=== PATIENT | female | born 1955 | race Caucasian/White ===

== ENCOUNTER 2016-11-03 14:40 | Emergency (ER) | payer BC ==
[2016-11-03] MEDS ORDERED: ASPIRIN 81 MG TABLET, CHEWABLE PO ONE (16:16)
--- NOTE | 2016-11-03 16:19 | ER Document Report ---
ED Medical Screen (RME) - General Chief Complaint: Chest Pain Stated Complaint: CHEST PAIN Mode of Arrival: Ambulatory Information source: Patient Notes: 61-year-old female presents with complaints of midsternal chest pain. Patient notes she has a history of hiatal hernia after eating steak she's been having a burning sensation in the epigastric region rating down her left arm. Patient denies any personal cardiac history Patient notes pain has been constant since last night and then improved today I have greeted and performed a rapid initial assessment of this patient. A comprehensive ED assessment and evaluation of the patient, analysis of test results and completion of the medical decision making process will be conducted by additional ED providers. PHYSICAL EXAMINATION: GENERAL: Well-appearing, well-nourished and in no acute distress. HEAD: Atraumatic, normocephalic. EYES: Pupils equal round extraocular movements intact, conjunctiva are normal. ENT: Nares patent NECK: Normal range of motion LUNGS: No respiratory distress Musculoskeletal: Normal range of motion NEUROLOGICAL: Normal speech, normal gait. PSYCH: Normal mood, normal affect. SKIN: Warm, Dry, normal turgor, no rashes or lesions noted. TRAVEL OUTSIDE OF THE [place] IN LAST 30 DAYS: No - Related Data Allergies/Adverse Reactions: doxycycline Adverse Reaction (Mild, Verified 06/23/16 08:04) UPSET STOMACH Past Medical History - Past Medical History Cardiac Medical History: Reports: Hx Hypertension - CONTROLLED WITH MEDICATIONS Denies: Hx Coronary Artery Disease, Hx Heart Attack Pulmonary Medical History: Denies: Hx Asthma, Hx Bronchitis, Hx COPD, Hx Pneumonia Neurological Medical History: Denies: Hx Cerebrovascular Accident, Hx Seizures Renal/ Medical History: Denies: Hx Peritoneal Dialysis Musculoskeltal Medical History: Reports Hx Arthritis Psychiatric Medical History: Reports: Hx Anxiety Past Surgical History: Reports: Hx Hysterectomy, Hx Orthopedic Surgery - bilateral hip replacement - Immunizations Hx Diphtheria, Pertussis, Tetanus Vaccination: Yes
[2016-11-03 16:58] LABS: ABSOLUTE BASOPHILS # (AUTO) 0.1 10^3/uL (0.0-0.2); ABSOLUTE EOSINOPHILS # (AUTO) 0.2 10^3/uL (0.0-0.6); ABSOLUTE LYMPHOCYTES (AUTO) 2.6 10^3/uL (0.5-4.7); ABSOLUTE MONOCYTES (AUTO) 0.7 10^3/uL (0.1-1.4); ABSOLUTE NEUT (AUTO) 6.3 10^3/uL (1.7-8.2); BASOPHILS % (AUTO) 0.6 % (0-2); EOSINOPHILS % (AUTO) 2.3 % (0-6); HEMATOCRIT 45.8 % (36.0-47.0); HEMOGLOBIN 16.2 g/dL (12.0-15.5); HGB HCT DIFFERENCE 2.8; LYMPHOCYTES % (AUTO) 25.8 % (13-45); MEAN CORPUSCULAR HEMOGLOBIN 30.9 pg (27.0-33.4); MEAN CORPUSCULAR HGB CONC 35.3 g/dL (32.0-36.0); MEAN CORPUSCULAR VOLUME 88 fl (80-97); MONOCYTES % (AUTO) 7.2 % (3-13); RED BLOOD COUNT 5.23 10^6/uL (3.72-5.28); RED CELL DISTRIBUTION WIDTH 12.9 % (11.5-14.0); SEGMENTED NEUTROPHILS % (AUTO) 64.1 % (42-78); WHITE BLOOD COUNT 9.9 10^3/uL (4.0-10.5)
[2016-11-03 17:10] LABS: ALANINE AMINOTRANSFERASE 32 U/L (9-52); ALBUMIN 4.8 g/dL (3.5-5.0); ALKALINE PHOSPHATASE 73 U/L (38-126); ANION GAP 13 (5-19); ASPARTATE AMINO TRANSFERASE 27 U/L (14-36); BILIRUBIN,DIRECT 0.3 mg/dL (0.0-0.4); BILIRUBIN,TOTAL 1.3 mg/dL (0.2-1.3); BLOOD UREA NITROGEN 27 mg/dL (7-20); CALCIUM 9.8 mg/dL (8.4-10.2); CARBON DIOXIDE 25 mmol/L (22-30); CHLORIDE 106 mmol/L (98-107); CREATINE KINASE 153 U/L (30-135); CREATININE RESULT 1.35 mg/dL (0.52-1.25); GLUCOSE 121 mg/dL (75-110); POTASSIUM 4.1 mmol/L (3.6-5.0); SODIUM 144.3 mmol/L (137-145)
--- NOTE | 2016-11-03 17:18 | ER Document Report ---
ED General - General Chief Complaint: Chest Pain Stated Complaint: CHEST PAIN Time seen by provider: 17:18 Mode of Arrival: Ambulatory Information source: Patient TRAVEL OUTSIDE OF THE [place] 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 She denies any significant pleuritic component or dyspnea or nausea. She states pain radiates somewhat through to the back. That she has been under increased stress recently, does have a history of hypertension and a hiatal hernia. She does report some belching and states she was only taking her Pepcid once a day instead of twice a day recently. Patient also reports she was raking in the yard and noted that she was having some pain to the same location later after raking, but not during the exertion itself. Patient is a nonsmoker. Patient had a cardiac catheterization which was negative in 2002. - Related Data Allergies/Adverse Reactions: doxycycline Adverse Reaction (Mild, Verified 06/23/16 08:04) UPSET STOMACH Past Medical History - General Information source: Patient - Social History Smoking Status: Never Smoker Chew tobacco use (# tins/day): No Frequency of alcohol use: None Drug Abuse: None Family History: CAD - Both of patient's parents were smokers, but father had a bypass surgery at age 65.of a stroke at age 68. Mother of congestive heart failure at age 77. Patient has suicidal ideation: No - Past Medical History Cardiac Medical History: Reports: Hx Hypertension - CONTROLLED WITH MEDICATIONS Denies: Hx Coronary Artery Disease, Hx Heart Attack Pulmonary Medical History: Denies: Hx Asthma, Hx Bronchitis, Hx COPD, Hx Pneumonia Neurological Medical History: Denies: Hx Cerebrovascular Accident, Hx Seizures Renal/ Medical History: Denies: Hx Peritoneal Dialysis Musculoskeltal Medical History: Reports Hx Arthritis Psychiatric Medical History: Reports: Hx Anxiety Past Surgical History: Reports: Hx Hysterectomy, Hx Orthopedic Surgery - bilateral hip replacement - Immunizations Hx Diphtheria, Pertussis, Tetanus Vaccination: Yes Review of Systems - Review of Systems Notes: REVIEW OF SYSTEMS: CONSTITUTIONAL : Denies fever, chills, or sweats. Denies recent illness. EENT: Denies eye, ear, throat, or mouth pain or symptoms. Denies nasal or sinus congestion or discharge. Denies throat, tongue, or mouth swelling or difficulty swallowing. CARDIOVASCULAR: Denies palpitations or racing or irregular heart beat. Denies ankle edema. Patient reports no recent long distance travel. RESPIRATORY: Denies cough, cold, or chest congestion. Denies shortness of breath, difficulty breathing, or wheezing. GASTROINTESTINAL: Denies abdominal pain or distention. Denies nausea, vomiting , or diarrhea. Denies blood in vomitus, stools, or per rectum. Denies black, tarry stools. Denies constipation. GENITOURINARY: Denies difficulty urinating, painful urination, burning, frequency, blood in urine, or discharge. FEMALE GENITOURINARY: Denies vaginal bleeding, heavy or abnormal periods, irregular periods. Denies vaginal discharge or odor. MUSCULOSKELETAL: Denies joint pain or swelling. Patient reports chronic arthralgias related to arthritis with intermittent episodes of back pain previously. SKIN: Denies rash, lesions or sores. HEMATOLOGIC : Denies easy bruising or bleeding. LYMPHATIC: Denies swollen, enlarged glands. NEUROLOGICAL: Denies confusion or altered mental status. Denies passing out or loss of consciousness. Denies dizziness or lightheadedness. Denies headache. Denies weakness or paralysis or loss of use of either side. Denies problems with gait or speech. Denies sensory loss, numbness, or tingling. Denies seizures. PSYCHIATRIC: Denies anxiety or stress. Denies depression, suicidal ideation, or homicidal ideation. ALL OTHER SYSTEMS REVIEWED AND NEGATIVE. Dictation was performed using [employer] voice recognition software Physical Exam - Vital signs Vitals: Pulse Resp BP Pulse Ox 65 18 168/94 H 97 11/03/16 15:21 11/03/16 15:21 11/03/16 15:21 11/03/16 15:21 - Notes Notes: PHYSICAL EXAMINATION: GENERAL: Well-appearing, well-nourished and in no acute distress. HEAD: Atraumatic, normocephalic. EYES: Pupils equal round and reactive to light, extraocular movements intact, conjunctiva are normal. ENT: Nares patent, oropharynx clear without exudates. Moist mucous membranes. NECK: Normal range of motion, supple without lymphadenopathy LUNGS: Breath sounds clear to auscultation bilaterally and equal. No wheezes rales or rhonchi. HEART: Regular rate and rhythm without murmurs ABDOMEN: Soft, nontender, nondistended abdomen. No guarding, no rebound. No masses appreciated. Negative Campbell's. Female : deferred Musculoskeletal: Normal range of motion, no pitting or edema. No cyanosis. Negative Homans. No palpable cord. Patient has pain to the left latissimus extending around to the back that is worse with movement of the arm and with flexion through the shoulder. No bony deformity or crepitance or erythema. NEUROLOGICAL: Cranial nerves grossly intact. Normal speech, normal gait. Normal sensory, motor exams PSYCH: Normal mood, normal affect. SKIN: Warm, Dry, normal turgor, no rashes or lesions noted. Course - Re-evaluation Re-evalutation: 11/03/16 20:43 Patient is pain-free after Toradol. No evidence for acute NV or ischemia. No evidence for pneumonia or suggestion for pulmonary embolus. No evidence for significant electrolyte imbalance or anemia or GI bleed. Unlikely reflux as an etiology, but patient was advised to increase her Pepcid dosing up to it's recommended twice a day. Patient does state there is an anxiety component and the inability to sleep, and she is agreeable on starting Ambien. - Vital Signs Vital signs: Temp Pulse Resp BP Pulse Ox 65 15 142/84 H 98 11/03/16 15:21 11/03/16 18:01 11/03/16 18:01 11/03/16 18:01 - Laboratory Result Diagrams: 11/03/16 16:31 11/03/16 16:31 Laboratory results interpreted by me: 11/03/16 11/03/16 16:31 16:31 Hgb 16.2 H BUN 27 H Creatinine 1.35 H Est GFR ( Amer) 48 L Est GFR (Non-Af Amer) 40 L Glucose 121 H Creatine Kinase 153 H - EKG Interpretation by Me EKG shows normal: Sinus rhythm - EKG as interpreted by me showed normal sinus rhythm at 64. There is no gross evidence for acute NV or ischemia. Normal axes. No old EKG available for comparison. Discharge - Discharge Clinical Impression: Chest wall pain Condition: Stable Disposition: HOME, SELF-CARE Instructions: Chest Pain of Unclear Cause ([facility]) Additional Instructions: Chest Pain of Unclear Cause The exact cause of your chest pain isn't clear. Fortunately, there is no evidence of a dangerous medical condition. Further testing may be required to find the source of the pain. Most often, we find that this pain is coming from the chest wall -- the muscles or rib joints in the chest. But chest pain can come from the lung and lung lining, the esophagus, the heart valves or heart lining, and even the stomach or gallbladder. Rest. Eat lightly until the pain is gone. We may prescribe medicine for pain and inflammation. You should call the physician immediately if the pain radiates to the shoulder, jaw or arms; if you start to run a fever or develop a cough; or if you develop shortness of breath, or other new or alarming symptoms. Prescriptions: Methocarbamol [Robaxin 500 mg Tablet] 500 mg PO Q8HP PRN #30 tablet PRN Reason: Zolpidem Tartrate [Ambien 5 mg Tablet] 5 mg PO HSP PRN #30 tablet PRN Reason:
[2016-11-03 17:20] LABS: CREATINE KINASE MB 1.88 ng/mL (<4.55)
[2016-11-03 17:21] LABS: TROPONIN I < 0.012 ng/mL
[2016-11-03] MEDS ORDERED: KETOROLAC TROMETHAMINE INJ/PF 30 MG/1 ML SDV IV ONE (17:43)
[2016-11-03 20:54] VITALS: BP 121/67
--- NOTE | 2016-11-03 21:37 | EKG REPORT ---
SEVERITY:- NORMAL ECG - SINUS RHYTHM : Confirmed by: Dyana Lopez 03-Nov-2016 21:35:26
== END 2016-11-03 20:54 | disposition home or self-care (01) ==
LOC: ER 14:40
DX: R07.89 Other chest pain (principal); I10 Essential (primary) hypertension; F32.9 Major depressive disorder, single episode, unspecified; Z90.710 Acquired absence of both cervix and uterus; Z96.643 Presence of artificial hip joint, bilateral
CPT/HCPCS: 93005; 99285; 96374; 36415; 82553; 82550; 85025; 80053; 84484; 71010; 93010; J1885

== ENCOUNTER 2019-06-29 08:08 | Emergency (ER) | payer BC, MEDICARE ==
[2019-06-29] MEDS ORDERED: KETOROLAC TROMETHAMINE 60 MG/2 ML SDV IM ONE (10:41)
--- NOTE | 2019-06-29 11:47 | RADIOLOGY REPORT (SQ) ---
EXAM DESCRIPTION: CERV SP 3 VIEW OR LESS COMPLETED DATE/TIME: 06/29/2019 11:37 am REASON FOR STUDY: fall/pain COMPARISON: None. NUMBER OF VIEWS: Three views. TECHNIQUE: AP, lateral and odontoid radiographic images acquired of the cervical spine. LIMITATIONS: None. FINDINGS: MINERALIZATION: Normal. ALIGNMENT: Normal. VERTEBRAE: Maintained height. No fracture or worrisome bone lesion. DISCS: Multilevel disc space narrowing with osteophytes. POSTERIOR ELEMENTS: Pedicles and facets are intact. No posterior arch defects. Facet arthropathy is present. FORAMINA: Narrowed at the levels of maximal disc and facet disease. HARDWARE: None in the spine. PARASPINAL SOFT TISSUES: Normal. OTHER: No other significant finding. IMPRESSION: SPONDYLOSIS WITHOUT BONE LESION OR FRACTURE. TECHNICAL DOCUMENTATION: JOB ID: [id number] [email or web address]- All Rights Reserved Reading location - IP/workstation name: [email or web address]
--- NOTE | 2019-06-29 12:04 | ER Document Report ---
ED Fall - General Chief Complaint: Fall Injury Stated Complaint: FALL/HEAD PAIN Time Seen by Provider: 06/29/19 09:21 Primary Care Provider: HOOD RYDER MD [Primary Care Provider] - Follow up as needed Mode of Arrival: Ambulatory Information source: Patient TRAVEL OUTSIDE OF THE [place] IN LAST 30 DAYS: No - HPI Notes: Patient comes in after a fall at home. She complains of left-sided head pain and posterior neck pain. She is also having pain in her index finger and thumb on the right hand. She states that the right elbow is also sore. She states that she tripped over a rug at home and that the left side of her face hit a cabinet. She denies any loss of consciousness. She does not take any blood thinners. There is been no vomiting. No vision changes. No problems with swallowing. No thorax or abdomen injuries. The pain in the right index finger and thumb is constant. It is sharp. She states it is severe. Nothing makes it better or worse. It appears to radiate up into the right elbow. - Related data Allergies/Adverse Reactions: doxycycline Adverse Reaction (Mild, Verified 06/23/16 08:04) UPSET STOMACH Home Medications: atenolol,valsarten, simvastatin, metformin Past Medical History - General Information source: Patient - Social History Smoking Status: Never Smoker Chew tobacco use (# tins/day): No Frequency of alcohol use: None Drug Abuse: None Family History: CAD - Both of patient's parents were smokers, but father had a bypass surgery at age 65.of a stroke at age 68. Mother of congestive heart failure at age 77. Patient has suicidal ideation: No Patient has homicidal ideation: No - Past Medical History Cardiac Medical History: Reports: Hx Hypercholesterolemia, Hx Hypertension - CONTROLLED WITH MEDICATIONS Denies: Hx Coronary Artery Disease, Hx Heart Attack Pulmonary Medical History: Denies: Hx Asthma, Hx Bronchitis, Hx COPD, Hx Pneumonia Neurological Medical History: Denies: Hx Cerebrovascular Accident, Hx Seizures Endocrine Medical History: Reports: Hx Diabetes Mellitus Type 2 Renal/ Medical History: Denies: Hx Peritoneal Dialysis Musculoskeletal Medical History: Reports Hx Arthritis Psychiatric Medical History: Reports: Hx Anxiety Past Surgical History: Reports: Hx Hysterectomy, Hx Orthopedic Surgery - bilateral hip replacement - Immunizations Hx Diphtheria, Pertussis, Tetanus Vaccination: Yes Review of Systems - Review of Systems Constitutional: denies: Chills, Fever Cardiovascular: denies: Palpitations, Heart racing Respiratory: denies: Cough, Short of breath -: Yes All other systems reviewed and negative Physical Exam - Vital signs Vitals: Temp Pulse Resp BP Pulse Ox 97.5 F 64 18 187/87 H 97 06/29/19 08:13 06/29/19 08:13 06/29/19 08:13 06/29/19 08:13 06/29/19 08:13 Interpretation: Hypertensive - General General appearance: Appears well, Alert - HEENT Head: Normocephalic, Atraumatic Eyes: Normal Pupils: PERRL Neck: Other - C-spine is nontender with and without step-off or deformity. She does have some paraspinal tenderness bilaterally in the posterior cervical region. - Respiratory Respiratory status: No respiratory distress Chest status: Nontender Breath sounds: Normal Chest palpation: Normal - Cardiovascular Rhythm: Regular Heart sounds: Normal auscultation Murmur: No - Abdominal Inspection: Normal Distension: No distension Bowel sounds: Normal Tenderness: Nontender Organomegaly: No organomegaly - Back Back: Normal, Nontender - Extremities General upper extremity: Normal inspection, Tender - Patient has some minimal tenderness about the right elbow., Normal color, Normal ROM, Normal temperature General lower extremity: Normal inspection, Nontender, Normal color, Normal ROM, Normal temperature, Normal weight bearing. No: Fredis's sign - Neurological Neuro grossly intact: Yes Cognition: Normal Orientation: AAOx4 Kacie Coma Scale Eye Opening: Spontaneous Kacie Coma Scale Verbal: Oriented [place] Coma Scale Motor: Obeys Commands Kacie Coma Scale Total: 15 Speech: Normal Motor strength normal: LUE, RUE, LLE, RLE Sensory: Normal - Psychological Associated symptoms: Normal affect, Normal mood - Skin Skin Temperature: Warm Skin Moisture: Dry Skin Color: Normal Course - Re-evaluation Re-evalutation: 06/29/19 12:02 Patient comes in after a fall and complains of some finger and thumb pain as well as elbow pain. I believe patient either hit her elbow or leaned on it to get up and has got some compression of the nerve canal. This is causing some radicular pain. - Vital Signs Vital signs: Temp Pulse Resp BP Pulse Ox 97.5 F 64 18 187/87 H 97 06/29/19 08:15 06/29/19 08:13 06/29/19 08:15 06/29/19 08:13 06/29/19 08:15 - Diagnostic Test Radiology reviewed: Image reviewed, Reports reviewed Discharge - Discharge Clinical Impression: Radiculopathy affecting upper extremity Condition: Stable Disposition: HOME, SELF-CARE Instructions: Radiculopathy ([facility]) Additional Instructions: Please call your primary doctor soon as possible to arrange follow-up Prescriptions: Hydrocodone/Acetaminophen [[place] 5-325 mg Tablet] 1 tab PO Q6 PRN 3 Days #12 tablet PRN Reason: Referrals: HOOD RYDER MD [Primary Care Provider] - Follow up in 3-5 days
[2019-06-29 12:35] VITALS: BP 161/99
== END 2019-06-29 12:33 | disposition home or self-care (01) ==
LOC: ER 08:08
DX: M54.12 Radiculopathy, cervical region (principal); R51 Headache; M54.2 Cervicalgia; M79.644 Pain in right finger(s); W01.198A Fall on same level from slipping, tripping and stumbling with subsequent striking against other object, initial encounter; Y92.000 Kitchen of unspecified non-institutional (private) residence as the place of occurrence of the external cause; M25.529 Pain in unspecified elbow; E78.00 Pure hypercholesterolemia, unspecified; I10 Essential (primary) hypertension; E11.9 Type 2 diabetes mellitus without complications; Z79.84 Long term (current) use of oral hypoglycemic drugs; Z79.899 Other long term (current) drug therapy
CPT/HCPCS: 99283; 96372; 72040; J1885